=== PATIENT | female | born 1930 | race Two or more races ===

== ENCOUNTER 2016-02-25 19:47 | Emergency (ER) | payer MEDICARE, MEDICAID ==
[~2016-02-25] VITALS: Ht 127 cm; Wt 72.6 kg
[2016-02-25 20:11] VITALS: BP 173/67
[2016-02-25 21:08] LABS: Basophils # (auto) 0 uL; Basophils % (auto) 0.5 % (0.0-2.0); Eosinophils # (auto) 0.2 uL; Hematocrit 39.8 % (36.0-46.0); Hemoglobin 12.6 g/dL (12.2-16.2); Lymphocytes # (auto) 2.5 uL; Lymphocytes % (auto) 28.6 % (10.0-50.0); Mean Corpuscular Hemoglobin 29.1 pg (28.0-32.0); Mean Corpuscular Hgb Conc. 31.6 g/dL (32.0-36.0); Mean Corpuscular Volume 92.1 fL (80.0-100.0); Mean Platelet Volume 9.6 fL (7.4-10.4); Monocytes # (auto) 0.5 uL; Monocytes % (auto) 6.2 % (0.0-12.0); Neutrophils # (auto) 5.6 uL; Neutrophils % (auto) 62.7 % (37.0-80.0); Platelet Count (auto) 346 10^3/uL (140-450); White Blood Cell 8.9 10^3/uL (4.4-10.8)
[2016-02-25 21:23] LABS: INR 1.11 (0.9-1.15); Partial Thromboplastin Time 30.1 sec (22.64-33.71); Prothrombin Time 11.4 sec (9.37-12.3)
[2016-02-25 21:31] LABS: Albumin 3.7 g/dL (3.4-5.0); BUN/Creatinine Ratio 13.4; Bilirubin, Total 0.6 mg/dL (0.2-1.0); Calcium 8.7 mg/dL (8.5-10.1); Magnesium 1.7 mg/dL (1.6-2.6); Potassium 4.4 mmol/L (3.5-5.1); Total Protein 7.9 g/dL (6.4-8.2)
[2016-02-25 21:52] LABS: B-Type Natriuretic Peptide 106.92 pg/mL (0-100)
[2016-02-25 22:27] LABS: Urine Bilirubin Negative (Negative); Urine Blood Negative /uL (Negative); Urine Color Yellow (Yellow); Urine Glucose Normal (Normal); Urine Ketone Negative (Negative); Urine Nitrite Negative (Negative); Urine RBC <1 /hpf (0 - 4); Urine Urobilinogen Normal (Negative)
== END 2016-02-26 04:02 | disposition left against medical advice (07) ==
LOC: ER 19:52
DX: R11.2 Nausea with vomiting, unspecified (principal); Z53.21 Procedure and treatment not carried out due to patient leaving prior to being seen by health care provider
CPT/HCPCS: 36415; 71020; 80053; 81001; 82962; 83735; 83880; 84484; 85025; 85049; 85610; 85730; 93005